=== PATIENT | female | born 1995 | race Caucasian/White ===

== ENCOUNTER → 2018-11-18 | Outpatient (CLI) | payer MEDICAID ==
[2018-11-18 10:34] LABS: Basophils # (A) 0.1 k/uL (0-0.2); Basophils % (A) 1 %; Eosinophils # (A) 0.3 k/uL (0-0.7); Eosinophils % (A) 7 %; HCT 39.1 % (34.0-46.0); HGB 12.5 gm/dL (11.4-16.0); Lymphocytes # (A) 2.1 k/uL (1.0-4.8); Lymphocytes % (A) 40 %; MCH 26.4 pg (25.0-35.0); MCV 82.5 fL (80.0-100.0); Mean Platelet Volume 6.7; Monocytes # (A) 0.3 k/uL (0-1.0); Monocytes % (A) 6 %; Neutrophils # (A) 2.3 k/uL (1.3-7.7); Neutrophils % (A) 44 %; Platelet Count 274 k/uL (150-450); RBC 4.74 m/uL (3.80-5.40); RDW 13.3 % (11.5-15.5); WBC 5.2 k/uL (3.8-10.6)
[2018-11-18 16:23] LABS: African American GFR (CKD) 122.1 (60.0-200.0); Albumin 4.7 g/dL (3.80-4.90); Albumin/Globulin Ratio 2.24 (1.60-3.17); Calcium 9.6 mg/dL (8.7-10.3); Globulin 2.1 g/dL (1.6-3.3); LDL Cholesterol,Calculated 106.4 mg/dL (0.0-131.0); Potassium 4.2 mmol/L (3.5-5.5); Total Bilirubin 0.6 mg/dL (0.2-1.2); Total Protein 6.8 g/dL (6.2-8.2); VLDL Calculation 14.6 mg/dL (5.00-40.00)
[2018-11-18 16:27] LABS: Iron Saturation 18.67 (12.00-45.00)
== END | disposition home or self-care (01) ==
LOC: LABWHC1 09:08
PROVIDERS: ATTEND Physician Assistant Medical
DX: Z00.00 Encounter for general adult medical examination without abnormal findings (principal); R53.83 Other fatigue
CPT/HCPCS: 36415; 80053; 80061; 82728; 83540; 83550; 84443; 85025

== ENCOUNTER 2021-05-23 05:22 | Emergency (ER) | payer BC, MEDICAID ==
[2021-05-23 05:31] VITALS: RESP 20; TEMP 98.3
--- NOTE | 2021-05-23 06:23 | XR ---
EXAMINATION TYPE: XR foot limited LT DATE OF EXAM: 05/23/2021 COMPARISON: NONE HISTORY: 2 views Possible foreign body TECHNIQUE: FINDINGS: Metatarsals are intact. I see no fracture nor dislocation. There is extension of the fourth toe. Ther e is no sign of a radiopaque foreign body. IMPRESSION: No evidence of a foreign body
[2021-05-23 07:08] VITALS: BP 121/79; PULSE 84
[2021-05-23] MEDS ORDERED: TOPICAL SKIN ADHESIVE 1 EACH AMP TOPICAL ONE (07:09)
--- NOTE | 2021-05-23 07:25 | ED ---
General Adult HPI - General Chief complaint: Extremity Injury, Lower Stated complaint: Left foot injury Time Seen by Provider: 05/23/21 06:34 Source: patient, RN notes reviewed Mode of arrival: ambulatory Limitations: no limitations - History of Present Illness Initial comments: Patient's a 25-year-old female who is approximately 15 weeks , pres enting to the emergency room today with chief complaint of an injury to her feet. She does admit that they were getting the nursery ready. She states that she had to have an episode of vomiting. She was running to throw up. She stepped on a piece of glass. Caused a cut to the right great toe and left fourth digit of her foot. Patient states tetanus is up-to-date. Does admit bleeding was controlled. Was concerned about clasping her foot. The patient also admits that she fell down 4. Unclear if she landed on her abdomen. Denies any abdominal pain. Denies any other complaints or any other symptoms at this time. - Related Data Allergies Allergy/AdvReac Type Severity Reaction Status Date / Time azithromycin [From Zithromax] Allergy Rash/Hives Verified 05/23/21 05:31 Review of Systems ROS Statement: Those systems with pertinent positive or pertinent negative responses have been documented in the HPI. ROS Other: All systems not noted in ROS Statement are negative. Past Medical History Past Medical History: No Reported History History of Any Multi-Drug Resistant Organisms: None Reported Past Surgical History: Orthopedic Surgery Past Psychological History: Anxiety, Depression Smoking Status: Never smoker Past Alcohol Use History: None Reported Past Drug Use History: None Reported General Exam - General Exam Comments Initial Comments: General: The patient is awake and alert, in no distress, and does not appear acutely ill. Eye: There is normal conjunctiva bilaterally. No signs of icterus. Ears, nose, mouth and throat: There are moist mucous membranes and no oral lesions. Neck: The neck is supple, there is no tenderness or JVD. Cardiovascular: There is a regular rate and rhythm. No murmur, rub or gallop is appreciated. Respiratory: Lungs are clear to auscultation, respirations are non-labored, breath sounds are equal. No wheezes, stridor, rales, or rhonchi. Gastrointestinal: Soft nontender. Musculoskeletal: Normal ROM, no tenderness. Strength 5/5. Sensation intact. Pulses equal bilaterally 2+. Neurological: A&O x 3. CN II-XII intact, There are no obvious motor or sensory deficits. Coordination appears grossly intact. Speech is normal. Skin: Patient does have laceration to the medial aspect of the right great toe. Patient laceration to the fourth digit of the left foot. Psychiatric: Cooperative, appropriate mood & affect, normal judgment. Limitations: no limitations Course Vital Signs 05/23/21 05/23/21 05:27 07:06 Temperature 98.3 F Pulse Rate 102 H 84 Respiratory 20 20 Rate Blood Pressure 135/86 121/79 O2 Sat by Pulse 97 96 Oximetry Procedures - Procedures Initial comment: Patient does have a 2 cm linear laceration to the medial aspect of the right great toe. This was cleaned here in the emergency room with saline and irrigated. Was closed and approximated with Dermabond. Patient tolerated well. Second laceration located to the posterior aspect of the fourth digit of the left foot. This was approximately 1 cm in total length. Wound was cleaned here in emergency room and irrigated with saline. Wound edges were approximated with Dermabond. Medical Decision Making - Medical Decision Making Patient's ultrasound reviewed unremarkable. Patient's lacerations are clean closed. Tetanus is up-to-date. 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 Advised return here to emergency room if any symptoms increase worsen or for any other concerns persist or sensory screen. - Lab Data Lab Results 05/23/21 Range/Units 06:18 Coronavirus (PCR) Not Detected (Not Detectd) Disposition Clinical Impression: Foot laceration, Fall, Disposition: HOME SELF-CARE Condition: Good Additional Instructions: Please follow-up with your STATE'S ATTORNEY as discussed. Please locally to fall off on its own over the next 3-5 days as discussed. Return to emergency room for any other concerns. Is patient prescribed a controlled substance at d/c from ED?: No Referrals: Jose R Robb DO [Primary Care Provider] - 1-2 days Time of Disposition: 08:39
--- NOTE | 2021-05-23 08:27 | US ---
EXAMINATION TYPE: US OB >= 14 wk fetus DATE OF EXAM: 05/23/2021 COMPARISON: None CLINICAL HISTORY: fall trauma and pain TECHNIQUE: Transabdominal (TA) GESTATIONAL AGE / DATING Physician Established:(15 weeks/2 days) EDC: 11/12/2021 Dates by LMP: LMP unknown Dates by First Scan: (15 weeks/2 days) EDC: 11/12/2021 Dates by Current Scan: 15weeks/6 days) EDC: 11/08/2021 SURVEY IUP: Single PLACENTA: Posterior PREVIA: No Previa JUAN: 15 Weeks, appears wnl CERVICAL LENGTH (transabdominal: norm > 3.0cm): 5.0 cm (Supplemental transvaginal imaging performed to verify cervical length.) BIOMETRY PRESENTATION: Variable LIE: Transverse with head maternal L BPD: 3.2 cm 15 weeks / 6 days HC: 11.8 cm 15 weeks / 6 days AC: 9.3 cm 15 weeks / 3 days FL: 1.8 cm 15 weeks / 2 days ESTIMATED WEIGHT IN GRAMS: 124.5 grams ESTIMATED WEIGHT IN LBS/OZ: 0 lbs. 4 oz. WEIGHT PERCENTAGE BASED ON ESTABLISHED DATES: 49.4% HC/AC: 1.28 Normal FL/AC: 19.5 HEART RATE: 149 bpm RHYTHM: Normal IMPRESSION: Limited survey. Single viable intrauterine corresponding to an ultrasound age 15 week s 6 days with estimated date of delivery 11/08/2021
== END 2021-05-23 09:41 | disposition home or self-care (01) ==
LOC: EC 05:22
DX: O9A.212 Injury, poisoning and certain other consequences of external causes complicating pregnancy, second trimester (principal); S91.312A Laceration without foreign body, left foot, initial encounter; Z20.822 Contact with and (suspected) exposure to COVID-19; Z3A.15 15 weeks gestation of pregnancy; Z88.1 Allergy status to other antibiotic agents; W25.XXXA Contact with sharp glass, initial encounter; Y93.02 Activity, running
CPT/HCPCS: 12001; 76805; 87635; 99284

== ENCOUNTER 2021-11-12 08:05 | Inpatient (IN) | payer BC ==
--- NOTE | 2021-11-13 07:52 | P.HPOB ---
History of Present Illness H&P Date: 11/13/21 Chief Complaint: Postdates induction of labor This patient is a pleasant 25-year-old 1 para 0 female estimated date of confinement 11/12/2021 estimated gestational age 40-2/7 weeks who presents to labor and delivery for induction of labor. Patient's care has been uncomplicated. She is now past her due date has requested induction of labor. Review of Systems Genitourinary: Reports Menstruation: Reports amenorrhea Past Medical History Past Medical History: No Reported History History of Any Multi-Drug Resistant Organisms: None Reported Past Surgical History: Orthopedic Surgery Past Anesthesia/Blood Transfusion Reactions: No Reported Reaction Past Psychological History: Anxiety, Depression Smoking Status: Never smoker Past Alcohol Use History: None Reported Past Drug Use History: None Reported Medications and Allergies Allergies Allergy/AdvReac Type Severity Reaction Status Date / Time azithromycin [From Zithromax] Allergy Rash/Hives Verified 05/23/21 05:31 Exam - OBG Physical Exam Abdomen: bowel sounds normal, no diffuse tenderness, no bruit present, no guarding noted, no hepatomegaly, no splenomegaly, no mass Vulva: both: normal Vagina: normal moisture, no discharge Cervix: no lesion (Cervix is 1-2 cm soft), no discharge Uterus: enlarged (Fundal height is 38 cm) Results blood work shows she is O positive, rubella immune, RPR nonreactive, hepatitis B negative, HIV is nonreactive, Glucola was normal, group B strep was positive, ultrasound done at 35 weeks showed normal growth Assessment and Plan Assessment: This is a pleasant 25-year-old 1 para 0 female 40-2/7 weeks gestation admitted to labor and delivery for postdates induction of labor. Patient does have a positive group B strep culture. Plan is antibiotic prophylaxis, induction of labor, and anticipate vaginal delivery. (1) Postmaturity , 40-42 weeks gestation Status: Acute Code(s): O48.0 - POST-TERM SNOMED Code(s): 76386871068208 (2) Group B streptococcal carriage complicating Status: Acute Code(s): O99.820 - STREPTOCOCCUS B CARRIER STATE COMPLICATING SNOMED Code(s): 142759417583572 (3) Elective induction of labor planned Status: Acute Code(s): HEP8708 - SNOMED Code(s): 548065404
[2021-11-14] MEDS ORDERED: TERBUTALINE 1 MG/ML VIAL SQ PRN (06:08)
[2021-11-14] MEDS ORDERED: AMPICILLIN 2,000 MG in SODIUM CHLORIDE 0.9% 100 ML IVPB STA (06:08)
[2021-11-14] MEDS ORDERED: OXYTOCIN 10 UNIT/ML 1 ML VIAL IM PRN (06:08)
[2021-11-14] MEDS ORDERED: CARBOPROST TROMETHAMINE 250 MCG/ML 1 ML AMP IM PRN (06:08)
[2021-11-14] MEDS ORDERED: OXYTOCIN 30 UNITS/500 ML NS 30 UNIT in SALINE 1 500ML.BAG IV SCH (06:08)
[2021-11-14] MEDS ORDERED: METHYLERGONOVINE 0.2 MG/ML 1 ML AMP IM PRN (06:08)
[2021-11-14] MEDS ORDERED: LIDOCAINE 0.5% (PF) 5 MG/ML (50 ML SDV) SQ PRN (06:08)
[2021-11-14] MEDS: LACTATED RINGERS 1,000 ML IV SCH ×4 (06:25→23:55)
[2021-11-14 06:39] LABS: Basophils # (A) 0.1 k/uL (0-0.2); Basophils % (A) 1 %; Eosinophils # (A) 0.3 k/uL (0-0.7); Eosinophils % (A) 4 %; HCT 38.2 % (34.0-46.0); HGB 12.2 gm/dL (11.4-16.0); Lymphocytes # (A) 2.4 k/uL (1.0-4.8); Lymphocytes % (A) 25 %; MCH 26.8 pg (25.0-35.0); MCV 83.7 fL (80.0-100.0); Mean Platelet Volume 8.2; Monocytes # (A) 0.5 k/uL (0-1.0); Monocytes % (A) 5 %; Neutrophils # (A) 6.1 k/uL (1.3-7.7); Neutrophils % (A) 63 %; Platelet Count 238 k/uL (150-450); RBC 4.56 m/uL (3.80-5.40); RDW 13.5 % (11.5-15.5); WBC 9.6 k/uL (3.8-10.6)
[2021-11-14] MEDS ORDERED: BUTORPHANOL 1 MG/ML 1 ML VIAL IV PRN (07:21)
[2021-11-14] MEDS: AMPICILLIN 1,000 MG in SODIUM CHLORIDE 0.9% 50 ML IVPB SCH ×3 (12:29→20:33)
[2021-11-14] MEDS ORDERED: SODIUM CHLORIDE 0.9% 100 ML BAG ONE (16:05)
[2021-11-14] MEDS ORDERED: fentaNYL (PF) 50 MCG/ML 5 ML AMP ONE (16:05)
[2021-11-14] MEDS ORDERED: ROPIVACAINE 5MG/ML 20ML VIAL ONE (16:05)
[2021-11-15] MEDS: AMPICILLIN 1,000 MG in SODIUM CHLORIDE 0.9% 50 ML IVPB SCH (00:27)
[2021-11-15] MEDS ORDERED: diphenhydrAMINE 25 MG CAP PO PRN (01:48)
[2021-11-15] MEDS ORDERED: diphenhydrAMINE 50 MG/ML 1 ML VIAL IVP PRN (01:48)
[2021-11-15] MEDS ORDERED: ZOLPIDEM 5 MG TAB PO PRN (01:48)
[2021-11-15] MEDS ORDERED: HYDROCORTISONE 2.5% RECTAL CREAM 30 GM TUBE RECTAL PRN (01:48)
[2021-11-15] MEDS ORDERED: OXYTOCIN 30 UNITS/500 ML NS 30 UNIT in SALINE 1 500ML.BAG IV SCH (01:48)
[2021-11-15] MEDS ORDERED: BENZOCAINE/MENTHOL SPRAY 1 GM/SPRAY AEROSOL TOPICAL PRN (01:48)
[2021-11-15] MEDS ORDERED: bisacodyL 10 MG SUPP RECTAL PRN (01:48)
[2021-11-15] MEDS ORDERED: LANOLIN CREAM 5 GM TUBE TOPICAL PRN (01:48)
--- NOTE | 2021-11-15 01:48 | P.PROBDLV ---
Vaginal Delivery Note - . Vaginal Delivery Note: Normal vaginal delivery viable female Apgars 8 and 9 delivery time was 0121 hours. Please see dictated H&P for intimate details of this patient's admission. Brief summary this is a pleasant 25-year-old 1 para 0 female 40-2/7 weeks gestation who is admitted earlier this morning for postdates induction of labor. Patient positive group B strep and therefore is given ampicillin. Patient has Pitocin induction of labor. She is artificial rupture of membranes at 2 cm dilated for clear fluid. Patient does progress and she is given an epidural for pain control. Patient gets to complete pushes for approximately 60 minutes. Patient pushes the head to the perineum the posterior perineum is supported. Posterior perineum was supported and we have controlled delivery of the infant's head over the intact perineum. Mouth and nares are bulb suctioned. 's head is straight occiput anterior presentation. Is no evidence of a nuchal cord. With gentle downward traction we then have deliver the anterior and posterior shoulder and rest this 's body. This is a vigorous viable female Apgars are 8 and 9 delivery time was 0121 hours. After delivery of the infant the infant is laid on the mother's abdomen. After the cord is d one pulsating, the umbilical cords doubly clamped and cut appears to be trivascular. The placenta is then spontaneously delivered intact. Estimated blood loss is 100 mL. Inspection of perineum shows second-degree laceration somewhat jagged around the left side but is repaired with 3-0 Vicryl usual fashion in excellent reapproximation is noted. All counts are correct 3. There are no complications. and mother stable delivery room.
[2021-11-15] MEDS: SENNOSIDES-DOCUSATE SODIUM 1 EACH TAB PO SCH ×3 (02:05→19:42)
[2021-11-15] MEDS: ACETAMINOPHEN TAB 325 MG TAB PO PRN ×2 (02:11→19:42)
--- NOTE | 2021-11-15 06:28 | P.PNOBGVD ---
Subjective - Subjective Patient reports: Reports appetite normal, Reports voiding normally, Reports pain well controlled, Reports ambulating normally : doing well Objective - Latest Vital Signs Latest vital signs: Vital Signs Temp Pulse Resp BP Pulse Ox 11/15/21 03:28 99 16 112/64 11/15/21 02:58 98 16 108/56 95 11/15/21 02:28 98.8 F 96 16 113/63 97 11/15/21 02:13 78 16 112/56 11/15/21 01:58 86 16 127/66 11/15/21 01:43 90 16 115/63 11/15/21 01:28 104 H 16 111/58 Intake and Output 11/14/21 11/14/21 11/15/21 14:59 22:59 06:59 Output Total 150 307 Balance -150 -307 Output: Urine 150 Estimated Blood Loss 200 Output, Quantitative 107 Blood Loss Other: # Voids 1 1 - Exam Lungs: bilateral: normal Chest: Normal S1, Normal S2 Extremities: Present: normal Abdomen: Present: normal appearance, soft Uterus: Present: normal, firm Assessment and Plan Assessment: day 0. Patient is resting without complaints. Vital signs are stable she's afebrile. Uterus is firm nontender and she is having normal lochia. Plan today is to continue routine care discharge home tomorrow (1) Postmaturity , 40-42 weeks gestation Current Visit: No Status: Acute Code(s): O48.0 - POST-TERM SNOMED Code(s): 56083535633951 (2) Group B streptococcal carriage complicating Current Visit: No Status: Acute Code(s): O99.820 - STREPTOCOCCUS B CARRIER STATE COMPLICATING SNOMED Code(s): 027247616134272 (3) Elective induction of labor planned Current Visit: No Status: Acute Code(s): [id number] - SNOMED Code(s): 859750702
[2021-11-15] MEDS: IBUPROFEN 600 MG TAB PO PRN ×3 (07:17→23:34)
[2021-11-15 07:34] LABS: Basophils % (A) 0 %; Eosinophils # (A) 0.1 k/uL (0-0.7); Eosinophils % (A) 0 %; HCT 34.9 % (34.0-46.0); HGB 11.4 gm/dL (11.4-16.0); Lymphocytes # (A) 1.4 k/uL (1.0-4.8); Lymphocytes % (A) 10 %; MCH 27.4 pg (25.0-35.0); MCHC 32.7 g/dL (31.0-37.0); MCV 83.8 fL (80.0-100.0); Mean Platelet Volume 8.6; Monocytes # (A) 0.6 k/uL (0-1.0); Monocytes % (A) 4 %; Neutrophils # (A) 11.4 k/uL (1.3-7.7); Neutrophils % (A) 84 %; Platelet Count 214 k/uL (150-450); RBC 4.17 m/uL (3.80-5.40); WBC 13.7 k/uL (3.8-10.6)
[2021-11-15] MEDS: SIMETHICONE 80 MG CHEWABLE PO PRN (23:34)
--- NOTE | 2021-11-16 06:20 | P.PNOBGVD ---
Subjective - Subjective Patient reports: Reports appetite normal, Reports voiding normally, Reports pain well controlled, Reports ambulating normally : doing well Objective - Latest Vital Signs Latest vital signs: Vital Signs Temp Pulse Resp BP 11/15/21 23:21 97.9 F 87 16 130/91 11/15/21 16:18 97.9 F 75 16 132/83 11/15/21 11:44 97.6 F 75 16 132/80 11/15/21 07:20 98.0 F 72 18 119/79 Intake and Output 11/15/21 11/15/21 11/16/21 14:59 22:59 06:59 Other: # Voids 1 1 2 - Exam Lungs: bilateral: normal Chest: Normal S1, Normal S2 Extremities: Present: normal Abdomen: Present: normal appearance, soft Uterus: Present: normal, firm - Labs Labs: Abnormal Lab Results - Last 24 Hours (Table) 11/15/21 Range/Units 06:55 WBC 13.7 H (3.8-10.6) k/uL Neutrophils # 11.4 H (1.3-7.7) k/uL Assessment and Plan Assessment: day #1. Patient is resting without new complaints. Vital signs are stable and she is afebrile. Uterus is firm nontender and she is having normal lochia. Patient's baby is having some jaundice issue and requiring phototherapy therefore she will continue to stay today. Plan is to continue routine care and discharge home tomorrow (1) Postmaturity , 40-42 weeks gestation Current Visit: No Status: Acute Code(s): O48.0 - POST-TERM SNOMED Code(s): 61206355201404 (2) Group B streptococcal carriage complicating Current Visit: No Status: Acute Code(s): O99.820 - STREPTOCOCCUS B CARRIER STATE COMPLICATING SNOMED Code(s): 028062961280959 (3) Elective induction of labor planned Current Visit: No Status: Acute Code(s): [id number] - SNOMED Code(s): 556013458
[2021-11-16] MEDS: IBUPROFEN 600 MG TAB PO PRN ×2 (06:34→21:43)
[2021-11-16] MEDS: SENNOSIDES-DOCUSATE SODIUM 1 EACH TAB PO SCH ×2 (15:21→19:57)
--- NOTE | 2021-11-16 18:33 | P.PN ---
Progress Note - Text Progress Note Date: 11/16/21 Patient's felt well throughout the day and baby is going to go home later today and therefore she wishes to go home as well. Plan is to continue routine care discharge home real
--- NOTE | 2021-11-16 18:36 | P.DS ---
Providers Date of admission: 11/14/21 05:47 Expected date of discharge: 11/16/21 Attending physician: Lupillo Garcia Primary care physician: Stated None - Discharge Diagnosis(es) (1) Postmaturity , 40-42 weeks gestation Please see dictated H&P for intimate details of this patient's admission. Brief summary this is a pleasant 25-year-old 1 para 0 female 40-2/7 weeks gestation admitted to labor and delivery for postdates induction of labor. Patient has induction of labor was on have a vaginal delivery of viable female . Please see dictated delivery note. day #1 patient's feeling well wishes to go home. Patient's felt to be stable for discharge home follow up with me in 6 weeks. Current Visit: No Status: Acute (2) Group B streptococcal carriage complicating Current Visit: No Status: Acute (3) Elective induction of labor planned Current Visit: No Status: Acute Plan - Discharge Summary Discharge Rx Participant: No New Discharge Prescriptions: New Ibuprofen [Motrin] 600 mg PO Q6HR PRN #30 tab PRN Reason: Mild Pain (Scale 1 To 3) No Action Sertraline [Zoloft] 1 tab PO DAILY Discharge Medication List Sertraline [Zoloft] 1 tab PO DAILY 11/14/21 [History] Ibuprofen [Motrin] 600 mg PO Q6HR PRN #30 tab 11/16/21 [Rx] Follow up Appointment(s)/Referral(s): Lupillo Garcia MD [STAFF PHYSICIAN] - 12/26/21 3:00 pm Patient Instructions/Handouts: Vaginal Delivery (DC) Activity/Diet/Wound Care/Special Instructions: No intercourse or anything per vagina for 6 weeks. Please call if any fever, chills, excessive vaginal bleeding, and/or abdominal pain Discharge Disposition: HOME SELF-CARE
[2021-11-16] MEDS: SIMETHICONE 80 MG CHEWABLE PO PRN (23:44)
--- NOTE | 2021-11-17 07:04 | P.PNOBGVD ---
Subjective - Subjective Patient reports: Reports appetite normal, Reports voiding normally, Reports pain well controlled, Reports ambulating normally : doing well Objective - Latest Vital Signs Latest vital signs: Vital Signs Temp Pulse Resp BP Pulse Ox 11/16/21 23:20 97.8 F 75 16 132/69 96 11/16/21 16:00 98 F 85 14 122/77 11/16/21 11:22 98.6 F 85 18 130/81 98 11/16/21 08:00 97.5 F L 105 H 15 136/86 98 - Exam Lungs: bilateral: normal Chest: Normal S1, Normal S2 Extremities: Present: normal Abdomen: Present: normal appearance, soft Uterus: Present: normal, firm Assessment and Plan Assessment: day #2. Patient ended up staying overnight because her baby was not released due to jaundice. She continues to do well without complaints. Plan is to continue routine care discharge home later today. (1) Postmaturity , 40-42 weeks gestation Current Visit: No Status: Acute Code(s): O48.0 - POST-TERM SNOMED Code(s): 49638178421340 (2) Group B streptococcal carriage complicating Current Visit: No Status: Acute Code(s): O99.820 - STREPTOCOCCUS B CARRIER STATE COMPLICATING SNOMED Code(s): 701523237981812 (3) Elective induction of labor planned Current Visit: No Status: Acute Code(s): [id number] - SNOMED Code(s): 850347393
[2021-11-17 08:27] VITALS: BP 133/81; PULSE 74; RESP 17; TEMP 97.7
[2021-11-17] MEDS: SENNOSIDES-DOCUSATE SODIUM 1 EACH TAB PO SCH (09:59)
== END 2021-11-17 09:40 | disposition home or self-care (01) | DRG 807 ==
LOC: 4FBP 11-14 05:47
PROVIDERS: ADMIT Obstetrics & Gynecology; ATTEND Obstetrics & Gynecology
PROC: 0KQM0ZZ Repair Perineum Muscle, Open Approach (ICD-10-PCS; principal; 2021-11-15)
PROC: 10E0XZZ Delivery of Products of Conception, External Approach (ICD-10-PCS; principal; 2021-11-15)
PROC: 3E033VJ Introduction of Other Hormone into Peripheral Vein, Percutaneous Approach (ICD-10-PCS; principal; 2021-11-15)
PROC: 10907ZC Drainage of Amniotic Fluid, Therapeutic from Products of Conception, Via Natural or Artificial Opening (ICD-10-PCS; principal; 2021-11-15)
DX: O99.824 Streptococcus B carrier state complicating childbirth (principal); Z37.0 Single live birth; O70.1 Second degree perineal laceration during delivery; F32.A Depression, unspecified; F41.9 Anxiety disorder, unspecified; O48.0 Post-term pregnancy; O99.344 Other mental disorders complicating childbirth; Z3A.40 40 weeks gestation of pregnancy; Z88.1 Allergy status to other antibiotic agents
CPT/HCPCS: 85025; 86850; 86900; 86901